=== PATIENT | male | born 1970 | race Caucasian/White ===

== ENCOUNTER 2018-11-11 12:05 | Emergency (ER) | payer OTHER ==
[~2018-11-11] VITALS: Ht 180.3 cm; Wt 95.2 kg
--- OUTSIDE RECORDS SUMMARY | ~2018-11-11 | XMS | Clinical Summary ---
Demographics + + + | Address | [address] | | | [place] [address] | + + + | Home Phone | | + + + | Preferred Language | Unknown | + + + | Marital Status | | + + + | Yazidism Affiliation | Unknown | + + + | Race | Unknown | + + + | Ethnic Group | Unknown | + + + Author + + + | Author | [facility] | | | and [place] | + + + | Organization | [facility] | | | and [place] | + + + | Address | Unknown | + + + | Phone | Unavailable | + + + Support + + +---------+ + | Name | Relationship | Address | Phone | + + +---------+ + | Mentzer,Ramiro | ECON | Unknown | | + + +---------+ + | Hilary Singh | ECON | Unknown | | + + +---------+ + Care Team Providers + +------+ + | Care Textile Conservator Name | Role | Phone | + +------+ + | Andrew Mac MD | PP | | + +------+ + Allergies No Known Allergies Medications + + + +---------+------+------+-------+ | Medication | Sig | Dispensed | Refills | Star | End | Statu | | | | | | t | Date | s | | | | | | Date | | | + + + +---------+------+------+-------+ | Multiple | Take by mouth. | | 0 | | | Activ | | Vitamins-Minerals | | | | | | e | | (MULTIVITAMIN PO) | | | | | | | + + + +---------+------+------+-------+ | etanercept | 25 mg. Twice weekly | | 0 | 11/0 | | Activ | | (ENBREL) 25 MG/0.5ML | | | | 2/20 | | e | | SOLN | | | | 11 | | | + + + +---------+------+------+-------+ | meloxicam (MOBIC) | Take 15 mg by mouth | | 0 | 06/1 | | Activ | | 7.5 mg tablet | Daily. | | | 1/20 | | e | | | | | | 12 | | | + + + +---------+------+------+-------+ | levothyroxine | Take 75 mcg by mouth | | 0 | 11/0 | | Activ | | (SYNTHROID) 75 MCG | every morning | | | 2/20 | | e | | tablet | (before breakfast). | | | 11 | | | + + + +---------+------+------+-------+ | tadalafil (CIALIS) | 5 mg as needed. | | 0 | 11/0 | | Activ | | 20 MG tablet | | | | 2/20 | | e | | | | | | 11 | | | + + + +---------+------+------+-------+ | pantoprazole | Take 1 tablet by | 90 | 3 | 03/0 | | Activ | | (PROTONIX) 40 mg | mouth every morning | tablet | | 2/20 | | e | | tablet | (before breakfast). | | | 15 | | | + + + +---------+------+------+-------+ Active Problems + + + | Problem | Noted Date | + + + | GERD (gastroesophageal reflux disease) | 05/07/2014 | + + + | Rectal urgency | 05/07/2014 | + + + | ANKYLOSING SPONDYLITIS | 06/10/2011 | + + + | CERVICAL SPONDYLOSIS WITHOUT MYELOPATHY | 06/10/2011 | + + + | CERVICALGIA | | + + + | Myalgia and myositis | | + + + + + | Overview: RAJINDER [id number] Decision | + + + +---+ | SPASMODIC TORTICOLLIS | | + +---+ | DEGENERATIVE DISC DISEASE, CERVICAL SPINE | | + +---+ | THORACIC/LUMBOSACRAL NEURITIS/RADICULITIS UNSPEC | | + +---+ | HIP PAIN | | + +---+ Family History + + +------+ + | Medical History | Relation | Name | Comments | + + +------+ + | Gout | Father | | | + + +------+ + | Heart disease | Father | | | + + +------+ + | High blood pressure | Father | | | + + +------+ + | Arthritis | Mother | | | + + +------+ + | Cancer | Mother | | | + + +------+ + | High blood pressure | Mother | | | + + +------+ + | Stroke | Mother | | | + + +------+ + + +------+--------+ + | Relation | Name | Status | Comments | + +------+--------+ + | Father | | | | + +------+--------+ + | Mother | | | | + +------+--------+ + Social History + +-------+ +--------+------+ | Tobacco Use | Types | Packs/Day | Years | Date | | | | | Used | | + +-------+ +--------+------+ | Never Smoker | | | | | + +-------+ +--------+------+ + +---+---+---+ | Smokeless Tobacco: | | | | | Never Used | | | | + +---+---+---+ + + +---------+ + | Alcohol Use | Drinks/We | oz/Week | Comments | | | ek | | | + + +---------+ + | Yes | | | rare - once a year | + + +---------+ + + + + | Sex Assigned at | Date Recorded | | | | + + + | Not on file | | + + + + + + + | Job Start Date | Occupation | Industry | + + + + | Not on file | Not on file | Not on file | + + + + + + + + | Travel History | Travel Start | Travel End | + + + + + + | No recent travel history available. | + + Last Filed Vital Signs + + + + | Vital Sign | Reading | Time Taken | + + + + | Blood Pressure | 124/75 | 07/26/2014828 PST | + + + + | Pulse | 54 | 07/26/2014828 PST | + + + + | Temperature | 36.8 C (98.2 F) | 05/08/2014 1043 PST | + + + + | Respiratory Rate | 14 | 07/26/2014828 PST | + + + + | Oxygen Saturation | 96% | 05/08/2014 1305 PST | + + + + | Inhaled Oxygen | - | - | | Concentration | | | + + + + | Weight | 92.1 kg (203 lb) | 05/08/2014 1043 PST | + + + + | Height | 180.3 cm (5' 11") | 07/26/2014 0829 PST | + + + + | Body Mass Index | 28.31 | 05/08/2014 1043 PST | + + + + Plan of Treatment + + + + + | Health Maintenance | Due Date | Last Done | Comments | + + + + + | Vaccine: | | | | | Dtap/Tdap/Td (1 - | 0 | | | | Tdap) | | | | + + + + + | Vaccine: Influenza | | 05/10/2017 | | | (Season Ended) | 9 | | | + + + + + Results Not on filefrom Last 3 Months Insurance + +--------+ +--------+ +---------+------+ | Payer | Benefi | Subscriber | Effect | Phone | Address | Type | | | t Plan | ID | yumiko | | | | | | / | | Dates | | | | | | Group | | | | | | + +--------+ +--------+ +---------+------+ | [facility] | [facility] | [id number] | 03/05/20 | [phone] | | PPO | | PLAN | [place] | | 12-Pre | 5 | | | | | [place] | | sent | | | | | | [place] | | | | | | + +--------+ +--------+ +---------+------+ + +--------+ +--------+ + + | Guarantor Name | Accoun | Relation to | Date | Phone | Billing Address | | | t Type | Patient | of | | | | | | | | | | + +--------+ +--------+ + + | Jonah Singh | Person | Self | [birth year] | [address] | | [place] | al/Fam | | 1970 | [phone] | [address] [place], | | | fr[place] | | | [address] (Home) | [place] [address] | | | | | | [phone] | | | | | | | 0 (Work) | | + +--------+ +--------+ + + Advance Directives Patient has advance care planning documents on file. For more information, please contact:[facility] [place] [address]
--- OUTSIDE RECORDS SUMMARY | ~2018-11-11 | XMS | Clinical Summary ---
Demographics + + + | Address | [address] | | | [place] [address] | + + + | Home Phone | | + + + | Preferred Language | Unknown | + + + | Marital Status | | + + + | Yazidi Affiliation | Unknown | + + + | Race | White | + + + | Ethnic Group | Not or | + + + Author + + + | Author | [facility] | + + + | Organization | [facility] | + + + | Address | Unknown | + + + | Phone | Unavailable | + + + Support + + +---------+ + | Name | Relationship | Address | Phone | + + +---------+ + | Hilary Singh | ECON | Unknown | | + + +---------+ + Care Team Providers + +------+ + | Care Medical Appointment Scheduler Name | Role | Phone | + +------+ + | Andrew Mac MD | PP | | + +------+ + Source Comments SUSANA is fully live on both [facility] and [facility] Allergies No Known Allergies Current Medications + + +--------+---------+------+------+-------+ | Prescription | Sig. | Disp. | Refills | Star | End | Statu | | | | | | t | Date | s | | | | | | Date | | | + + +--------+---------+------+------+-------+ | tadalafil (CIALIS) | Take 5 mg by mouth | | | 11/0 | | Activ | | 20 mg oral tablet | as needed. | | | 2/20 | | e | | | | | | 11 | | | + + +--------+---------+------+------+-------+ | pantoprazole 40 mg | Take 1 tablet by | | | 12/0 | | Activ | | oral tablet,delayed | mouth once daily. | | | 02/21 | | e | | release (DR/EC) | | | | 14 | | | + + +--------+---------+------+------+-------+ | MULTIVITAMIN ORAL | Take 1 tablet by | | | | | Activ | | | mouth once daily. | | | | | e | + + +--------+---------+------+------+-------+ | meloxicam 7.5 mg | Take 1 tablet by | | | 12/03 | | Activ | | oral tablet | mouth. | | | 07/24 | | e | | | | | | 12 | | | + + +--------+---------+------+------+-------+ | levothyroxine | Take 1 tablet by | | | 11/0 | | Activ | | (SYNTHROID) 75 mcg | mouth once daily. | | | 08/24 | | e | | oral tablet | | | | 11 | | | + + +--------+---------+------+------+-------+ | etanercept | 25 mg. Twice weekly | | | 11/0 | | Activ | | (ENBREL) 25 mg/0.5mL | | | | 2/20 | | e | | (0.51) subcutaneous | | | | 11 | | | | syringe | | | | | | | + + +--------+---------+------+------+-------+ | fluticasone 50 | Instill 2 sprays | | | | | Activ | | mcg/actuation nasal | into each nostril | | | | | e | | spray,suspension | once daily. | | | | | | + + +--------+---------+------+------+-------+ | tofacitinib | Take 5 mg by mouth | 24 | 0 | 05/1 | | Activ | | (XELJANZ) 5 mg oral | every twelve hours. | tablet | | 2/20 | | e | | tablet | Patient needs oral | | | 15 | | | | | drug because he will | | | | | | | | be traveling | | | | | | | | internationally in | | | | | | | | remote areas with no | | | | | | | | refrigeration. | | | | | | + + +--------+---------+------+------+-------+ Active Problems + + + | Problem | Noted Date | + + + | Rheumatoid arthritis (HCC) | 07/17/2014 | + + + | Muscle cramps | 07/17/2014 | + + + | Osteoarthritis cervical spine | 07/17/2014 | + + + | Hypothyroidism | 07/17/2014 | + + + | Sjogren's syndrome (HCC) | 07/17/2014 | + + + | Duodenal ulcer | 07/17/2014 | + + + Social History + +-------+ +--------+------+ | Tobacco Use | Types | Packs/Day | Years | Date | | | | | Used | | + +-------+ +--------+------+ | Never Smoker | | | | | + +-------+ +--------+------+ + +---+---+---+ | Smokeless Tobacco: | | | | | Never Used | | | | + +---+---+---+ + + + | Sex Assigned at | Date Recorded | | | | + + + | Not on file | | + + + Last Filed Vital Signs + + + + | Vital Sign | Reading | Time Taken | + + + + | Blood Pressure | 129/86 | 11/13/2014 11:11 AM PDT | + + + + | Pulse | 62 | 11/13/2014 11:11 AM PDT | + + + + | Temperature | - | - | + + + + | Respiratory Rate | - | - | + + + + | Oxygen Saturation | - | - | + + + + | Inhaled Oxygen | - | - | | Concentration | | | + + + + | Weight | 93.9 kg (207 lb) | 11/13/2014 11:11 AM PDT | + + + + | Height | 180.3 cm (5' 11") | 11/13/2014 11:11 AM PDT | + + + + | Body Mass Index | 28.87 | 11/13/2014 11:11 AM PDT | + + + + Plan of Treatment + + + + + | Health Maintenance | Due Date | Last Done | Comments | + + + + + | Pneumococcal (Adult) | | | | | (1 of 3 - PCV13) | 0 | | | + + + + + | Influenza (Flu) | | | | | vaccination (Season | 9 | | | | Ended) | | | | + + + + + Results Not on filefrom Last 3 Months Insurance + +--------+ +------+ + + | Payer | Benefi | Subscriber | Type | Phone | Address | | | t Plan | ID | | | | | | / | | | | | | | Group | | | | | + +--------+ +------+ + + | [facility] | PHP | xxxxxxxxxxx | PPO | [id number] | [address] | | | [place] | | | [phone] | [place] [address] | | | [place] | | | | | | | [place] | | | | | + +--------+ +------+ + + + +--------+ +--------+ + + | Guarantor Name | Accoun | Relation to | Date | Phone | Billing Address | | | t Type | Patient | of | | | | | | | | | | + +--------+ +--------+ + + | MARY SINGH | Person | Self | [birth year] | Home: | [address] | | | al/Fam | | 1970 | [phone] | [address] [place], | | | fr[place] | | | [phone] | [place] [address] | + +--------+ +--------+ + +
--- OUTSIDE RECORDS SUMMARY | ~2018-11-11 | XMS | Clinical Summary ---
Demographics + + + | Address | [address] | | | [place] [address] | + + + | Home Phone | | + + + | Preferred Language | Unknown | + + + | Marital Status | | + + + | Holiness Affiliation | Unknown | + + + | Race | Unknown | + + + | Ethnic Group | Unknown | + + + Author + + + | Author | [facility] | | | and [place] | + + + | Organization | [facility] | | | and [...] Team Providers + +------+ + | Care Mill Beam Fitter Name | Role | Phone | + [...] + + + + | Overview: RAJINDER [id number] Decision | + + + +---+ | [...] | | + +--------+ +--------+ +---------+------+ | [facility] | [facility] | [id number] | 03/05/20 | [phone] | | PPO | | PLAN | [...] Person | Self | [birth year] | | [address] | | [place] | al/Fam | | 1970 | [phone] | [address] [place], | | | franco | | | 9 (Home) | [place] [address] | | | | | | [phone] | | | | | | | 0 (Work) | | + +--------+ +--------+ + + Advance Directives Patient has advance care planning documents on file. For more information, please contact:[facility] [place] [address]
--- OUTSIDE RECORDS SUMMARY | ~2018-11-11 | XMS | Clinical Summary ---
Demographics + + + | Address | [address] | | | [place] [address] | + + + | Home Phone | | + + + | Preferred Language | Unknown | + + + | Marital Status | | + + + | Orthodox Affiliation | Unknown | + + + [...] Team Providers + +------+ + | Care International Freight Forwarder Name | Role | Phone | + +------+ + | Andrew Mac MD | PP | | + +------+ + Source Comments SUSANA is fully live on both [facility] and [facility] Allergies No Known Allergies Current Medications [...] | + +--------+ +------+ + + | [facility] | PHP | [phone] | PPO | [id number] | [address] | | | [place] | | | [address] | [place] [address] | | | [place]W | | | [...] | Self | [birth year] | Home: | [address] | | | al/Fam | | 1970 | [phone] | [address] [place], | | | fr[place] | | | [phone] | [place] [address] | + +--------+ +--------+ + +
[~2018-11-11 12:05] MED LIST: ENBREL25 MG/0.5 SUB-Q; FLONASE2 SPRAY NS; MELOXICAM15 MG PO; NORCO 5-325 TA1 EACH PO; SYNTHROID75 MCG PO
== END 2018-11-11 13:14 | disposition home or self-care (01) ==
LOC: ED 12:05
DX: H91.92 Unspecified hearing loss, left ear (principal); H92.02 Otalgia, left ear; Z79.899 Other long term (current) drug therapy
CPT/HCPCS: 99282

== ENCOUNTER 2020-02-23 06:30 | Day surgery (SDC) | payer OTHER ==
[~2020-02-23] VITALS: Ht 180.3 cm; Wt 88.9 kg
[~2020-02-23 06:30] MED LIST changes: +OMEPRAZOLE20 MG PO
[2020-02-23] MEDS ORDERED: SILDENAFIL20 MG PO (07:26)
[2020-02-23] MEDS ORDERED: CELECOXIB200 MG PO (08:25)
[2020-02-23] MEDS ORDERED: HYDROCODON-ACE1 EA11 PO (08:25)
--- NOTE | 2020-02-26 07:21 | OR ---
[facility] [address], [place] [address] Signed DATE OF OPERATION: 02/23/2020 SURGEON: Dariela Mcfarland MD PREOPERATIVE DIAGNOSIS: Medial meniscus tear, right knee. POSTOPERATIVE DIAGNOSIS: Medial meniscus tear, right knee. PROCEDURE PERFORMED: Right knee arthroscopy with partial medial meniscectomy. SURGEON Dariela Mcfarland MD IT SYSTEMS ANALYST: JACOBO Mo ANESTHESIA: General. BLOOD LOSS: Minimal. TOURNIQUET TIME: Zero. BRIEF HISTORY: Mary is a 49-year-old gentleman with pain and locking in his knee. We tried nonoperative treatment and then obtained an MRI which showed a large complex posteromedial meniscus tear. Risks and benefits of operative treatment discussed with him and he elected to proceed. DESCRIPTION OF PROCEDURE: Once consent was obtained, he was taken to the operating room. After adequate anesthesia, he was placed on the operating room table and all downside pressure points were well padded. Left leg was flexed, abducted, and externally rotated on a well-padded leg guevara. Leg was placed in a leg guevara, but no tourniquet was placed. The portal sites were pre-injected using 0.25% Marcaine with epinephrine under alcohol prep. The leg was then prepped and draped in a standard sterile fashion. Standard Electronically Signed By: DARIELA MCFARLAND MD 02/26/20 0721 PATIENT NAME: MARY WAKEFIELD OPERATIVE REPORT DATE OF : 72 REPORT #: [id number] PHYSICIAN: DARIELA MCFARLAND MD PCP: ROBBY GOODMAN MD REPORT IS CONFIDENTIAL AND NOT TO BE RELEASED WITHOUT AUTHORIZATION [facility] [address], [place] [address] Signed inferolateral and superolateral portals were made and the scope was introduced. ARTHROSCOPIC FINDINGS: There was moderate to significant synovitis throughout the knee particularly on the medial side. Grade 1-2 chondromalacia to the patella, grade 3 to the trochlea. The medial and lateral gutters showed mild osteophytes. No other significance. ACL and PCL were intact. Lateral compartment was intact. Medial compartment showed a small 4 cm square area of grade 3 to grade 4 chondromalacia. There were some small flaps on it. There was a complex posteromedial meniscus tear extending from posterior horn to the midbody. DESCRIPTION OF OPERATION: Standard inferomedial portal was made after localization using a spinal needle. The straight and curved biters were then used to trim the substantial meniscus tear back. Approximately 50% meniscectomy was obtained. This was then smoothed and all debris evacuated using the shaver. The scope was then withdrawn. Portals were closed with 3-0 nylon and the knee injected with 60 mg Toradol. The knee was then dressed with Adaptic, ABD, and an Eric wrap. He tolerated the procedure well. All sponge, needle, and instrument counts were correct. Dariela Mcfarland MD BA/YUMIKOL /[id number] Copies: ~ Electronically Signed By: DARIELA MCFARLAND MD 08/720 PATIENT NAME: TWYLAMARY KRISTI OPERATIVE REPORT DATE OF : 72 REPORT #: [id number] PHYSICIAN: DARIELA MCFARLAND MD PCP: ROBBY GOODMAN MD REPORT IS CONFIDENTIAL AND NOT TO BE RELEASED WITHOUT AUTHORIZATION
== END 2020-02-23 10:25 | disposition home or self-care (01) ==
LOC: DS 06:30
PROVIDERS: Specialist
PROC: 0SBC4ZZ Excision of Right Knee Joint, Percutaneous Endoscopic Approach (ICD-10-PCS; principal; 2020-02-23 08:00)
DX: S83.231A Complex tear of medial meniscus, current injury, right knee, initial encounter (principal); M65.861 Other synovitis and tenosynovitis, right lower leg; M22.41 Chondromalacia patellae, right knee; M25.761 Osteophyte, right knee; K21.9 Gastro-esophageal reflux disease without esophagitis; F43.10 Post-traumatic stress disorder, unspecified; Z79.899 Other long term (current) drug therapy; X58.XXXA Exposure to other specified factors, initial encounter
CPT/HCPCS: 01400; A9270; J0690; J1100; J1885; J2250; J2405; J2704; J2765; J3010; J7121

== ENCOUNTER 2021-03-30 23:07 | Emergency (ER) | payer OTHER ==
[~2021-03-30] VITALS: Ht 180.3 cm; Wt 84.8 kg
[~2021-03-30 23:07] MED LIST changes: +CELECOXIB200 MG PO; +HYDROCODON-ACE1 EA11 PO; +SILDENAFIL20 MG PO
[2021-03-31] MEDS ORDERED: TRIAMTERENE-HC1 EAC1 PO (00:04)
[2021-03-31] MEDS ORDERED: OMEPRAZOLE40 MG PO (00:04)
== END 2021-03-31 00:10 | disposition home or self-care (01) ==
LOC: ED 23:07
DX: R09.89 Other specified symptoms and signs involving the circulatory and respiratory systems (principal); M06.9 Rheumatoid arthritis, unspecified; M35.00 Sjogren syndrome, unspecified; E06.3 Autoimmune thyroiditis; Z88.1 Allergy status to other antibiotic agents; Z88.6 Allergy status to analgesic agent; Z88.8 Allergy status to other drugs, medicaments and biological substances; Z79.899 Other long term (current) drug therapy
CPT/HCPCS: 99283

== ENCOUNTER 2022-10-02 05:43 | Day surgery (SDC) | payer OTHER ==
--- NOTE | 2022-06-09 11:40 | NUR ---
LEFT MESSAGE FOR DR DIAS AT OFFICE REGARDING O2 SAT AND COVID TEST ORDERED DUE TO SYMPTOMS REPORTED BY PT
[~2022-10-02] VITALS: Ht 180.3 cm; Wt 91.0 kg
[~2022-10-02 05:43] MED LIST changes: +BETAHISTINE5 GM PO; +OMEPRAZOLE40 MG PO; +TRIAMTERENE-HC1 EAC1 PO
[2022-10-02] MEDS ORDERED: HYDROCODON-ACE1 EA10 PO (07:22)
--- NOTE | 2022-10-02 08:04 | NUR ---
10/02/22 08Sulema Coats 0747 PT ARRIVED TO PACU AND WAKES EASILY. PT DENIES PAIN AND NAUSEA. VSS. HOB INCREASED AND PLAN OF CARE DISCUSSED. 4036 PT SIPPING SODA AND DENIES CONCERNS. 0750 PT DRESSED HIMSELF AND DENIES CONCERNS. SLING PLACED WITH ICE PACK. ALL QUESTIONS ANSWERED AND PT DC VIA WC.
--- NOTE | 2022-10-02 09:41 | NUR ---
PT TAKEN TO OR FOR SURGERY, REMAINING IN RM. SHE FEELS INFORMED, ANXIOUS FOR PT TO BE ABLE TO USE HIS HAND AGAIN. GAVE BLESSING WILL FOLLOW
--- NOTE | 2022-10-02 17:22 | OR ---
[facility] [address], [place] [address] Signed DATE OF OPERATION: 10/02/2022 SURGEON: Dariela Mcfarland MD PREOPERATIVE DIAGNOSIS: Carpal tunnel syndrome, right. POSTOPERATIVE DIAGNOSIS: Carpal tunnel syndrome, right. PROCEDURE PERFORMED: Right carpal tunnel release. ASSOCIATE ART DIRECTOR: None. ANESTHESIA: Selvin block. TOURNIQUET TIME: 12 minutes. BRIEF HISTORY: Mary is a 52-year-old gentleman with progressive worsening of pain and numbness in his hand, now complaining of pain and numbness in the pinky as well. Risks and benefits of carpal tunnel were discussed with him after nerve conduction studies confirmed the entrapment of the median nerve. He wished to proceed. DESCRIPTION OF PROCEDURE: Once consent was obtained, he was taken to the operating room. After adequate anesthesia, he was left on the day surgery bed and hand table was brought in. The arm was prepped and draped in a standard sterile fashion after establishment of the Selvin block. The carpal tunnel was approached through a 1.5 cm incision in the distal wrist crease. This was carried through the skin and subcutaneous tissue. Palmaris longus was identified, retracted and protected. The transverse carpal ligament was then identified under loupe magnification and was dissected free of overlying soft tissue distally and proximally. It was then released proximally a cm and distally to the distal extent under direct magnification. This was then palpated using a [place] and found to be completely released. The median nerve was noted to have some erythema in it, particularly in the midportion about a cm distal to the incision. The nerve was intact. Electronically Signed By: DARIELA MCFARLAND MD 10/02/22 1722 PATIENT NAME: MARY WAKEFIELD OPERATIVE REPORT DATE OF : 72 REPORT #: [id number] PHYSICIAN: DARIELA MCFARLAND MD PCP: ROBBY GOODMAN MD REPORT IS CONFIDENTIAL AND NOT TO BE RELEASED WITHOUT AUTHORIZATION [facility] [address], [place] [address] Signed There was no disturbance to it. The wound was then copiously irrigated with antibiotic solution, closed with 3-0 nylon and injected with 8 mL of 0.25% Marcaine without epinephrine. The wound was closed with 3-0 nylon and dressed with bacitracin, Adaptic, 4 x 8s, and gauze. He tolerated the procedure well. All sponge, needle, and instrument counts were correct. Dariela Mcfarland MD BA/MODL /[id number] Copies: ~ Electronically Signed By: DARIELA MCFARLAND MD 10/02/22 1722 PATIENT NAME: MARY WAKEFIELD OPERATIVE REPORT DATE OF : 72 REPORT #: [id number] PHYSICIAN: DARIELA MCFARLAND MD PCP: ROBBY GOODMAN MD REPORT IS CONFIDENTIAL AND NOT TO BE RELEASED WITHOUT AUTHORIZATION
== END 2022-10-02 07:58 | disposition home or self-care (01) ==
LOC: DS 05:43 → OPS 05:43
PROVIDERS: ATTEND Specialist
PROC: 01N50ZZ Release Median Nerve, Open Approach (ICD-10-PCS; principal; 2022-10-02 07:30)
DX: G56.01 Carpal tunnel syndrome, right upper limb (principal); Z88.8 Allergy status to other drugs, medicaments and biological substances; Z88.1 Allergy status to other antibiotic agents; K21.9 Gastro-esophageal reflux disease without esophagitis
CPT/HCPCS: J0690; J2704; J7121

== ENCOUNTER 2024-09-15 07:15 | Day surgery (SDC) | payer OTHER ==
[2024-09-12 16:27] VITALS: BP 135/81
[~2024-09-15] VITALS: Ht 180.3 cm; Wt 88.6 kg
--- NOTE | ~2024-09-15 | OR ---
[facility] [address] [place], [place] [address] Draft DATE OF OPERATION: 09/15/2024 SURGEON: Dariela Mcfarland MD PREOPERATIVE DIAGNOSIS: Medial meniscus tear, lateral meniscus tear left knee. POSTOPERATIVE DIAGNOSIS: Medial meniscus tear, lateral meniscus tear, left knee. PROCEDURE PERFORMED: Left knee arthroscopy with partial, medial and lateral meniscectomy. FOOT SETTER: None. ANESTHESIA: General. BLOOD LOSS: Minimal. BRIEF HISTORY: Mary is a 54-year-old gentleman with pain and catching in his knee and MRI consistent with the above. Risks and benefits of operative treatment were discussed with him. He did have a prior quad tendon rupture and repair and that left his knee fairly stiff. Once consent was obtained, he was taken to the operating room. After adequate anesthesia, he was placed on the operating room table. The right leg was flexed, abducted and externally rotated on a well-padded leg guevara. Left was placed in a well-padded proximal thigh leg guevara with no tourniquet. The leg was then prepped and draped in a standard sterile fashion. The three portal sites were then injected with 0.25% Marcaine with epinephrine. Standard inferolateral and superolateral portals were established and the scope was introduced in the knee. 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 The trochlea had a very large area of grade 4 chondromalacia. There were scar bands in the suprapatellar pouch. The medial and lateral gutters were clear. ACL and PCL were intact. There was complex tears of both medial and lateral menisci. PATIENT NAME: MARY WAKEFIELD OPERATIVE REPORT DATE OF : 72 REPORT #: [id number] PHYSICIAN: DARIELA MCFARLAND MD PCP: YUNG BENTLEY MD REPORT IS CONFIDENTIAL AND NOT TO BE RELEASED WITHOUT AUTHORIZATION [facility] [address] [place], [place] [address] Draft DESCRIPTION OF OPERATION: Standard inferomedial portal was established after localization using a spinal needle. The straight and curved biters were then used to trim each meniscus tear back to a stable rim anteriorly and posteriorly. This was complicated by the scar tissue and stiffness in his knee. Both menisci were then smoothed using the shaver in and tapered anteriorly as best as possible. The chondral flaps in the lateral femoral condyle were debrided. There was grade 3 to areas of grade 4 chondromalacia in both femoral condyles. The debris was then evacuated using the shaver and the scope was withdrawn. Portals were closed with 3-0 nylon and the knee was injected with 60 mg of Toradol at the end of the case. The wounds were then dressed with Adaptic, ABD, and Eric wrap. He tolerated the procedure well. All sponge, needle, and instrument counts were correct. Dariela Mcfarland MD BA/YUMIKOL /[id number] Copies: ~ PATIENT NAME: MARY WAKEFIELD OPERATIVE REPORT DATE OF : 72 REPORT #: [id number] PHYSICIAN: DARIELA MCFARLAND MD PCP: UYNG BENTLEY MD REPORT IS CONFIDENTIAL AND NOT TO BE RELEASED WITHOUT AUTHORIZATION
[~2024-09-15 07:15] MED LIST changes: +CEFAZOLIN SODIUM 2 GM/20 ML SYR IV SCH; +HYDROCODON-ACE1 EA10 PO; +IBLOOD GLUCOSE TEST STRIP 1 EA TEST VI PRN; +LACTATED RINGER'S 1,000 ML IV SCH; +LIDOCAINE HCL 1% 5 ML SDV INJ ONE
[2024-09-15 07:26] VITALS: BP 144/80
[2024-09-15] MEDS ORDERED: BUPIVACAINE HCL 0.25% 50 ML MDV ONE (08:11)
[2024-09-15] MEDS ORDERED: KETOROLAC TROMETHAMINE 30 MG/ML VIAL ONE ×2 (08:11→09:06)
[2024-09-15] MEDS ORDERED: propofoL 200 MG/20 ML VIAL ONE (08:27)
[2024-09-15] MEDS ORDERED: MIDAZOLAM HCL 2 MG/2 ML VIAL ONE (08:27)
[2024-09-15] MEDS ORDERED: LIDOCAINE HCL 2% 5 ML SDV ONE (08:28)
[2024-09-15] MEDS ORDERED: HYDROCODONE/ACETA 5/325 TAB PO PRN (08:45)
[2024-09-15] MEDS ORDERED: KETOROLAC TROMETHAMINE 15 MG/ML VIAL IV PRN (08:45)
[2024-09-15] MEDS ORDERED: fentaNYL citrate 100 MCG/2 ML VIAL ONE (08:49)
[2024-09-15] MEDS ORDERED: ACETAMINOPHEN 1,000 MG/100 ML VIAL ONE (09:06)
[2024-09-15] MEDS ORDERED: ondansetron HCL 4 MG/2 ML VIAL ONE (09:06)
[2024-09-15] MEDS ORDERED: DICLOFENAC SODI75 MG PO (09:37)
[2024-09-15] MEDS ORDERED: HYDROCODON-ACE1 EA10 PO (09:37)
--- NOTE | 2024-09-15 09:47 | NUR ---
09/15/24 0947 Estefanía Clifford 0936-PT ARRIVES TO PACU VIA STRETCHER, RESTING SEMI FOWLERS, PT REACTIVE TO STIMULI BUT RESTS W/ EYES CLOSED, VSS ON 6L VIA MASK, RR EVEN AND UNLABORED. ICE PACK APPLIED TO LT KNEE 0945-PT AWAKENS ON OWN, TITRATED TO RA, VS REMAIN STABEL. PT DENIES PAIN OR NAUSEA.
[2024-09-15 10:09] VITALS: BP 165/94
--- NOTE | 2024-09-15 10:10 | NUR ---
Patient returns back to room 4 from PACU. Report taken from DEWEY José. Patient is sipping on soda upon return and his orientation has returned to baseline. Vital signs obtained. Fluids are running through IV at this time. He reports no nausea. he reports his pain being a 3-4/10, he declines pain medication at this time. Dressing to left knee is clean, dry, and intact with ice applied over top. Expectations were reviewed with patient and he expressed understanding.He is requesting more soda and this was provdied along with chocolate pudding. He declines any other needs at this time. Call light within reach, bed in lowest position
--- NOTE | 2024-09-15 10:38 | NUR ---
Rounding on patient. Patient reports some slight nausea and would like his pain medication soon. Additional pudding provided to patient and then medicated with [place] per orders. He states that he will be able to urinate soon. IV fluids disconnected from patient at this time.
[2024-09-15 11:05] VITALS: BP 139/79
--- NOTE | 2024-09-15 11:05 | NUR ---
Hourly rounding on patient. Vital signs obtained. Patient states that his pain is still about a 3/10 which is tolerable to him. Patient states that he is ready to get up and walk and urinate. Patient walks steadily to the bathroom and is able to void. Patient allowed to get dressed at this time.
--- NOTE | 2024-09-15 11:20 | NUR ---
Discharge instructions were reviewed with patient and spouse in detail. they denied any questions. IV removed from right hand. Patient discharged via wheelchair where his spouse Angie is to take him home.
[2024-09-15] MEDS ORDERED: SEVOFLURANE 250 ML BTL INH ONE (13:46)
[2024-09-18] MEDS ORDERED: DICLOFENAC SOD 75 MG TABEC PO SCH (09:00)
== END 2024-09-15 11:25 | disposition home or self-care (01) ==
LOC: DS 07:15
PROVIDERS: ATTEND Specialist
PROC: 0SBD4ZZ Excision of Left Knee Joint, Percutaneous Endoscopic Approach (ICD-10-PCS; 2024-09-15)
PROC: 0SBD4ZZ Excision of Left Knee Joint, Percutaneous Endoscopic Approach (ICD-10-PCS; principal; 2024-09-15 09:00)
DX: S83.232A Complex tear of medial meniscus, current injury, left knee, initial encounter (principal); S83.272A Complex tear of lateral meniscus, current injury, left knee, initial encounter; M22.42 Chondromalacia patellae, left knee; X58.XXXA Exposure to other specified factors, initial encounter
CPT/HCPCS: 01400; J0131; J0690; J1885; J2003; J2250; J2405; J2704; J3010; J7121

== ENCOUNTER 2024-09-29 07:00 | Day surgery (SDC) | payer OTHER ==
[~2024-09-29 07:00] MED LIST changes: +DICLOFENAC SODI75 MG PO; +HEParin SOD (PORCINE) 5,000 UNIT/ML SDV SUB-Q SCH
[2024-09-29 07:14] VITALS: BP 136/82
[2024-09-29] MEDS ORDERED: DEXAMETHASONE SOD PHOS 4 MG/ML VIAL ONE (07:34)
[2024-09-29] MEDS ORDERED: KETOROLAC TROMETHAMINE 30 MG/ML VIAL ONE (07:34)
[2024-09-29] MEDS ORDERED: propofoL 200 MG/20 ML VIAL ONE (07:34)
[2024-09-29] MEDS ORDERED: ondansetron HCL 4 MG/2 ML VIAL ONE (07:34)
[2024-09-29] MEDS ORDERED: MIDAZOLAM HCL 2 MG/2 ML VIAL ONE (07:35)
[2024-09-29] MEDS ORDERED: LIDOCAINE HCL 2% 5 ML SDV ONE (07:35)
[2024-09-29] MEDS ORDERED: ondansetron HCL 4 MG/2 ML VIAL IV PRN ×2 (08:30→10:45)
[2024-09-29] MEDS ORDERED: NALOXONE HCL 0.4 MG SYR IV PRN ×2 (08:30→10:45)
[2024-09-29] MEDS ORDERED: IBLOOD GLUCOSE TEST STRIP 1 EA TEST VI PRN (08:30)
[2024-09-29] MEDS ORDERED: fentaNYL citrate 50 MCG/ML SDV IV PRN (08:30)
[2024-09-29] MEDS ORDERED: fentaNYL citrate 100 MCG/2 ML VIAL ONE ×2 (08:55→09:53)
[2024-09-29] MEDS ORDERED: ACETAMINOPHEN 1,000 MG/100 ML VIAL ONE (09:01)
[2024-09-29] MEDS ORDERED: LACTATED RINGER'S 1,000 ML IV ONE (09:21)
--- NOTE | 2024-09-29 10:18 | NUR ---
09/29/24 1018 Sheets,Sulema 1012 PT ARRIVED TO PACU ON 6L VIA MASK, ORAL AIRWAY IN PLACE AND CHIN USED OFF AND ON TO MAINTAIN AIRWAY. RESP EVEN AND UNLABORED.
[2024-09-29] MEDS ORDERED: OXYCODON-ACETA1 EAC2 PO (10:42)
[2024-09-29] MEDS ORDERED: ACETAMINOPHEN500 MG PO (10:42)
[2024-09-29] MEDS ORDERED: IBUPROFEN600 MG PO (10:42)
[2024-09-29] MEDS ORDERED: IBUPROFEN 600 MG TAB PO PRN (10:45)
[2024-09-29] MEDS ORDERED: ACETAMINOPHEN 500 MG TAB PO PRN (10:45)
[2024-09-29] MEDS ORDERED: LACTATED RINGER'S 1,000 ML IV SCH (10:45)
[2024-09-29] MEDS ORDERED: OXYCODONE/APAP 7.5/325 TAB PO PRN (10:45)
[2024-09-29 11:08] VITALS: BP 135/83
--- NOTE | 2024-09-29 11:15 | NUR ---
Patient returns to room 4 from PACU. Report taken from DEWEY Leone. Patient is awake and talking. He is feeling nauseous and has cool air blowing on his face and he states that this is helping slightly. He has tried sipping on some 7-Up. Water and Jell-O provided to patient. Dressing to right groin assess and there is some bleeding noted to the dressing. At report it was stated that it was CDI. Vital signs obtained. SCD's in place. Narcotic prescription given to patient's spouse to take to the pharmacy to start to get it filled. Discharge requirements reviewed with patient and he states that he remembers most of it from when he was here just a few weeks ago. He denies any other needs at this time. emesis bag given just in case he feels the need to vomit. Call light within reach, bed in lowest position.
[2024-09-29] MEDS ORDERED: ONDANSETRON ODT8 MG PO (11:26)
--- NOTE | 2024-09-29 11:58 | NUR ---
rounding on patient. He is reporting that his nausea is slightly better, but still there. Having a little more pain. Dressing assessed and there is a little more bleeding than previously noted. Patient is not ready to get up and urinate yet. Urinal offered for the time being and he declined. More jell-o and water provided. he is declining pain medication at this time. no other needs stated at this time
[2024-09-29 12:09] VITALS: BP 143/86
[2024-09-29] MEDS ORDERED: SEVOFLURANE 250 ML BTL INH ONE (13:36)
--- NOTE | 2024-10-01 12:30 | OR ---
[facility] [address] [place], [place] [address] Signed DATE OF OPERATION: 09/29/2024 SURGEON: Ross Navas MD PREOPERATIVE DIAGNOSIS: Right inguinal hernia. POSTOPERATIVE DIAGNOSIS: Right indirect inguinal hernia. PROCEDURE: Repair of right indirect inguinal hernia including implantation of Prolene mesh, underlay technique. ANESTHESIA: General, LMA; Rina Whitley CRNA and local 10 mL of 0.25% Marcaine with epinephrine. INDICATIONS: This 54-year-old white man has had increasing pain and a significant bulge in the right lower groin area. He was evaluated by Dr. Emily Duran, his urologist, as well as Dr. Bentley. He is clinically noted to have a right inguinal hernia, which is reducible. Testicles are normal and there is no evidence of left-sided hernia. He is admitted at this time to undergo right inguinal hernia repair. He understands the risk of bleeding, infection, recurrence, and other unforeseen complications. FINDINGS: A small indirect sac was noted, this was excised and ligated. The floor itself was relatively intact except at the internal ring. Consideration was made for closure without mesh, but under the circumstances of his age and so forth. Implantation of mesh was undertaken without problem. Cord structures were preserved. An ilioinguinal nerve branch was identified and preserved as well. DESCRIPTION OF PROCEDURE: The patient was brought to the operating room, given a general LMA type anesthetic. Preoperative antibiotic Ancef was given. Sequential compression device stockings used and heparin subcutaneously administered. The right lower abdomen was clipped and prepared with a chlorhexidine solution and draped sterilely. A small incision was made cephalad to the pubic tubercle on the right. Dissection was carried through the subcutaneous tissue with electrocautery. The external oblique was incised along its fibers revealing the underlying cord structures. An ilioinguinal nerve was dissected Electronically Signed By: ROSS NAVAS MD 10/01/24 1230 PATIENT NAME: MARY WAKEFIELD OPERATIVE REPORT DATE OF : 72 REPORT #: [id number] PHYSICIAN: ROSS NAVAS MD PCP: YUNG BENTLEY MD REPORT IS CONFIDENTIAL AND NOT TO BE RELEASED WITHOUT AUTHORIZATION [facility] [address] [place], [place] [address] Signed free from the cord itself and reflected around the external oblique laterally. With all due care and a use of blunt electrocautery dissection, the cord was mobilized from the floor. A Aurora drain was used to encircle the cord. The floor itself was largely intact, the internal ring itself was somewhat lax. Circumferential transection of the cremasteric muscle fibers around the cord was undertaken revealing an indirect hernia sac medially, this was dissected free from the cord. It was elevated and ligated at its base with 2-0 silk suture and redundant hernia sac amputated and passed for Pathology. Allis clamps applied to the tendon of the transversus abdominis. Primary repair without mesh could be undertaken, though his tissues were go and strong and likely to have long-term failure of such an approach and on that basis mesh was deemed appropriate. The floor of the canal was incised with electrocautery and properitoneal space bluntly developed. The segment of Prolene, ProGrip mesh was cut in an elliptical configuration and secured in an underlay technique with interrupted 2-0 Prolene sutures. The tails of the graft were carried alongside the cord, but not encircling it entirely. Care was taken to avoid incorporation of the ilioinguinal nerve, which was easily identified. The aperture for the cord was optimal. The cord was replaced into the canal and 10 mL of 0.25% Marcaine with epinephrine was injected locally. Care was taken to avoid any problem associated with the ilioinguinal nerve. External oblique was reapproximated with running 2-0 Vicryl suture after replacing the nerve into the canal. Taiwo layer was reapproximated with interrupted 3-0 Vicryl after irrigation with saline solution. The skin was closed with running subcuticular 3-0 Vicryl. Steri-Strips were applied as was an Acticoat dressing. The patient tolerated the procedure well. Blood loss was minimal. Complications none. Ross Navas MD JM/MODL /[id number] cc: MD Emily Paez MD Copies: YUNG BENTLEY DMD Electronically Signed By: ROSS NAVAS MD 10/01/24 1230 PATIENT NAME: MARY WAKEFIELD OPERATIVE REPORT DATE OF : 72 REPORT #: [id number] PHYSICIAN: ROSS NAVAS MD PCP: YUNG BENTLEY MD REPORT IS CONFIDENTIAL AND NOT TO BE RELEASED WITHOUT AUTHORIZATION [address] [address] Signed EMILY DURAN MD ~ Electronically Signed By: ROSS NAVAS MD 10/01/24 1230 PATIENT NAME: MARY WAKEFIELD OPERATIVE REPORT DATE OF : 72 REPORT #: [id number] PHYSICIAN: ROSS NAVAS MD PCP: YUNG BENTLEY MD REPORT IS CONFIDENTIAL AND NOT TO BE RELEASED WITHOUT AUTHORIZATION
--- NOTE | 2024-10-03 14:11 | PATH ---
[facility] [address] [facility] [place], [place] [address] Signed SPECIMEN(S): A RIGHT HERNIA SAC SPECIMEN SOURCE: A. RIGHT HERNIA SAC CLINICAL HISTORY: Right inguinal hernia FINAL PATHOLOGIC DIAGNOSIS: Tissue from right inguinal area, herniorrhaphy: - Benign fibroadipose tissue consistent with hernia sac. - No abscess, granuloma, or malignancy identified. [facility] MICROSCOPIC EXAMINATION: Histologic sections of all submitted blocks are examined by light microscopy. These findings, together with the gross examination, support the pathologic diagnosis. GROSS DESCRIPTION: The specimen, labeled and designated "Francisco, right hernia sac," is received in formalin and consists of fibromembranous pink-oh, focally congested tissue fragment that measure 4.5 x 0.9 x 0.4 cm. Sectioning through the specimen is grossly unremarkable. Law Researcher sections are submitted in (A1). JS (under the direct supervision of a pathologist) The Gross Description was prepared using a voice recognition system. The report was reviewed for accuracy; however, sound-alike word errors, addition and/or deletions may occur. If there is any question about this report, please contact Client Services. ADDITIONAL NOTES: Immunohistochemical and/or in situ hybridization studies if performed in this case included appropriate positive controls that reacted as expected. This test was developed and its performance characteristics determined by [facility]. It has not been cleared or approved by the U.S. Food and Drug Administration. The FDA has determined that such clearance or approval is not necessary. This test is used for clinical purposes. It should not be regarded as investigational or for research. [facility] is certified under the Clinical Laboratory Improvement PATIENT NAME: MARY WAKEFIELD PATHOLOGY DATE OF : 72 REPORT #: [id number] PHYSICIAN: [facility] PCP: YUNG BENTLEY MD REPORT IS CONFIDENTIAL AND NOT TO BE RELEASED WITHOUT AUTHORIZATION [facility] [address] [place], [place] [address], [place] [address] Signed Amendments of 1988 (CLIA) as qualified to perform high complexity clinical laboratory testing. PERFORMING LABORATORY: Technical component was performed by [facility], [address] [place] [id number] (CLIA# [id number]). Professional interpretation was performed by [facility] [employer] [facility] - [facility], [address] [place] [id number] (CLIA#: [id number]). Diagnostician: Heber High MD Pathologist Electronically Signed 10/03/2024 Copies: ~ PATIENT NAME: MARY WAKEFIELD PATHOLOGY DATE OF : 72 REPORT #: [id number] PHYSICIAN: [facility] PCP: YUNG BENTLEY MD REPORT IS CONFIDENTIAL AND NOT TO BE RELEASED WITHOUT AUTHORIZATION
== END 2024-09-29 12:43 | disposition home or self-care (01) ==
LOC: DS 07:00
PROVIDERS: ATTEND Surgery
PROC: 0YU50JZ Supplement Right Inguinal Region with Synthetic Substitute, Open Approach (ICD-10-PCS; principal; 2024-09-29 08:30)
DX: K40.90 Unilateral inguinal hernia, without obstruction or gangrene, not specified as recurrent (principal); E06.3 Autoimmune thyroiditis; K21.00 Gastro-esophageal reflux disease with esophagitis, without bleeding; M06.9 Rheumatoid arthritis, unspecified; Z98.890 Other specified postprocedural states; Z88.1 Allergy status to other antibiotic agents; Z88.8 Allergy status to other drugs, medicaments and biological substances; Z79.899 Other long term (current) drug therapy
CPT/HCPCS: 00830; C1781; J0131; J0690; J1100; J1644; J1885; J2003; J2250; J2405; J2704; J3010; J7121